=== PATIENT | male | born 1950 | race Caucasian/White ===

== ENCOUNTER 2019-08-24 21:10 | Emergency (ER) | payer BC ==
[~2019-08-24] VITALS: Ht 170.1 cm; Wt 68.0 kg
[2019-08-24 21:45] LABS: BASO % 0.3 % (0.0-1.0); EOS % 0.6 % (1.0-4.0); HEMATOCRIT 33.1 % (42.0-52.0); LYMPH # 1.9 10*3/uL (1.3-4.4); LYMPH % 30.4 % (27.0-41.0); MEAN CELL VOLUME 106.8 fl (80.0-94.0); MEAN CORPUSCULAR HGB 35.8 pg (27.0-31.0); MEAN CORPUSCULAR HGB CONC 33.5 g/dl (33.0-37.0); MEAN PLATELET VOLUME 9.5 fl (9.6-12.3); MONO % 16.3 % (3.0-9.0); NEUT # 3.2 10*3/uL (2.3-7.9); NEUT % 51.8 % (47.0-73.0); PLATELET COUNT AUTOMATED 160 10*3/uL (130-400); RED CELL DISTRI WIDTH 12.5 % (0-14.5); WHITE BLOOD COUNT 6.2 10*3/uL (4.8-10.8)
[2019-08-24 21:57] LABS: ACT PARTIAL THROMBO TIME 27.5 SECONDS (20.0-32.1)
[2019-08-24 22:03] LABS: ALBUMIN 2.8 gm/dl (3.1-4.5); ALKALINE PHOSPHATASE 62 U/L (45-117); BUN 13 mg/dl (7-24); CHLORIDE 105 mmol/L (98-107); CREATININE 1.19 mg/dL (0.70-1.30); LIPASE 172 U/L (73-393); POTASSIUM 2.9 mmol/L (3.5-5.1); SGOT/AST 79 IU/L (3-35); SODIUM 140 mmol/L (136-145); TOTAL PROTEIN 7.2 gm/dL (6.4-8.2)
[2019-08-24 22:09] LABS: ACETAMINOPHEN (TYLENOL) < 5.0 ug/ml (10-30); SGPT/ALT 30 U/L (12-78); TROPONIN I < 0.015 ng/ml (<0.045)
[2019-08-25 03:08] LABS: BILIRUBIN NEGATIVE (NEGATIVE); BLOOD NEGATIVE (NEGATIVE); CLARITY CLEAR (CLEAR); COLOR YELLOW (YELLOW); GLUCOSE NEGATIVE (NEGATIVE); KETONE NEGATIVE (NEGATIVE); SPECIFIC GRAVITY 1.015 (1.005-1.030)
[2019-08-25 03:09] LABS: LEUKO ESTERASE NEGATIVE (NEGATIVE); NITRITE NEGATIVE (NEGATIVE); PH 6.5 (5.0-9.0); UROBILINOGEN 0.2 E.U./dl (0.2-1.0)
[2019-08-25 03:13] LABS: URINE AMPHETAMINES < 1000 (1000ng/ml); URINE BARBITURATES < 200 (200ng/ml); URINE BENZODIAZEPINES > 200 (200ng/ml); URINE CANNABINOIDS (THC) > 50 (50ng/ml); URINE COCAINE < 300 (300ng/ml); URINE METHADONE < 300 (300ng/ml); URINE OPIATES < 300 (300ng/ml)
[2019-08-25 03:24] LABS: URINE PHENCYCLIDINE < 25 (25ng/ml)
[2019-08-25 03:28] LABS: RBC 0-2 rbc/hpf (0-2); WBC 0-2 wbc/hpf (0-5)
[2019-08-25] MEDS ORDERED: LEVOFLOXACIN500 MG PO (10:21)
== END 2019-08-25 10:36 | disposition home or self-care (01) ==
LOC: ED 21:10
PROVIDERS: Emergency Medicine Emergency Medical Services
DX: J69.0 Pneumonitis due to inhalation of food and vomit (principal)

== ENCOUNTER 2022-03-22 12:23 | Inpatient (IN) | payer MEDICARE ==
[~2022-03-22] VITALS: Ht 170.1 cm; Wt 69.0 kg
[~2022-03-22 12:23] MED LIST: ATARAX,VISTARIL50 MG PO; CLINDAMYCIN HC300 MG PO; DICYCLOMINE HYD20 MG PO; LEVOFLOXACIN500 MG PO; MULTI-VITAMIN1 EACH PO; NATURE'S BLEND F1 MG PO; THERA TABLET400 MCG PO; VITAMIN B-1100 M1 PO
[2022-03-22 12:46] VITALS: BP 111/79
[2022-03-22 13:03] LABS: HEMATOCRIT 35.6 % (42.0-52.0); MEAN CELL VOLUME 108.2 fl (80.0-94.0); MEAN CORPUSCULAR HGB 36.2 pg (27.0-31.0); MEAN CORPUSCULAR HGB CONC 33.4 g/dl (33.0-37.0); MEAN PLATELET VOLUME 9.3 fl (9.6-12.3); PLATELET COUNT AUTOMATED 90 10*3/uL (130-400); RED BLOOD COUNT 3.29 10*6/uL (4.50-5.90); RED CELL DISTRI WIDTH 13.8 % (0-14.5)
[2022-03-22 13:07] LABS: MANUAL DIFF REFLEX YES
[2022-03-22 13:23] LABS: BASOPHILS 1 % (0-1); PLATELET SUFFICIENCY LOW (NORMAL); POLYCHROMASIA SLIGHT; TOTAL CELLS COUNTED 100 #CELLS
[2022-03-22 13:28] LABS: ALKALINE PHOSPHATASE 109 U/L (46-116); BUN 6 mg/dl (9-23); CHLORIDE 102 mmol/L (98-107); POTASSIUM 3.7 mmol/L (3.4-5.1); SGPT/ALT 21 U/L (10-49)
[2022-03-22 13:31] LABS: ETHYL ALCOHOL 302.9 mg/dl (<3)
[2022-03-22 15:05] LABS: URINE AMPHETAMINES Negative (1000ng/ml); URINE BARBITURATES Negative (200ng/ml); URINE BENZODIAZEPINES Positive (200ng/ml); URINE CANNABINOIDS (THC) Negative (50ng/ml); URINE COCAINE Negative (300ng/ml); URINE METHADONE Negative (300ng/ml); URINE OPIATES Negative (300ng/ml); URINE PHENCYCLIDINE Negative (25ng/ml)
[2022-03-22 15:07] LABS: BILIRUBIN Negative (Negative); BLOOD Trace-Lysed (Negative); CLARITY Cloudy (Clear); COLOR Dark Yellow (Yellow); GLUCOSE Negative (Negative); KETONE Trace (Negative); LEUKO ESTERASE 2+ (Negative); NITRITE Positive (Negative); PH 5.5 (4.5-8.0); SPECIFIC GRAVITY 1.015 (1.001-1.030)
[2022-03-22 15:35] LABS: BACTERIA 1+; WBC 21-30 wbc/hpf (0-5)
[2022-03-22 16:00] VITALS: BP 144/88
[2022-03-22 20:00] VITALS: BP 125/85
[2022-03-23] VITALS: BP 132/89
[2022-03-23 08:00] VITALS: BP 138/84
[2022-03-23 12:00] VITALS: BP 128/81
[2022-03-23 16:00] VITALS: BP 140/84
[2022-03-23 20:00] VITALS: BP 141/92
[2022-03-24] VITALS: BP 151/88
[2022-03-24 04:00] VITALS: BP 125/46
[2022-03-24 08:00] VITALS: BP 149/89
[2022-03-24 12:00] VITALS: BP 110/81
[2022-03-24 15:06] LABS: HEMATOCRIT 32.6 % (42.0-52.0); MEAN CELL VOLUME 108.3 fl (80.0-94.0); MEAN CORPUSCULAR HGB 35.5 pg (27.0-31.0); MEAN CORPUSCULAR HGB CONC 32.8 g/dl (33.0-37.0); MEAN PLATELET VOLUME 10.9 fl (9.6-12.3); PLATELET COUNT AUTOMATED 64 10*3/uL (130-400); RED BLOOD COUNT 3.01 10*6/uL (4.50-5.90); RED CELL DISTRI WIDTH 14.1 % (0-14.5); WHITE BLOOD COUNT 6.8 10*3/uL (4.8-10.8)
[2022-03-24 15:12] LABS: MANUAL DIFF REFLEX YES
[2022-03-24 15:17] LABS: ALKALINE PHOSPHATASE 108 U/L (46-116); BUN 8 mg/dl (9-23); CHLORIDE 100 mmol/L (98-107); POTASSIUM 3.5 mmol/L (3.4-5.1); SGPT/ALT 20 U/L (10-49); TOTAL PROTEIN 7.1 gm/dL (6.0-8.0)
[2022-03-24 15:41] LABS: OVALOCYTES FEW; PLATELET SUFFICIENCY LOW (NORMAL); TOTAL CELLS COUNTED 100 #CELLS
[2022-03-24 15:42] LABS: TARGET CELLS FEW
[2022-03-24 16:00] VITALS: BP 110/72
[2022-03-24 20:00] VITALS: BP 125/80
[2022-03-25 01:17] VITALS: BP 96/65
[2022-03-25 08:00] VITALS: BP 125/86
[2022-03-25 12:00] VITALS: BP 116/84
[2022-03-25 16:00] VITALS: BP 117/81
[2022-03-25 20:00] VITALS: BP 115/75
[2022-03-26] VITALS: BP 114/77
[2022-03-26 08:00] VITALS: BP 148/89
[2022-03-26 12:00] VITALS: BP 123/72
[2022-03-26 16:00] VITALS: BP 120/82
[2022-03-26 20:00] VITALS: BP 132/92
[2022-03-27] VITALS: BP 136/98
[2022-03-27 08:00] VITALS: BP 154/98
[2022-03-27 12:00] VITALS: BP 137/87
[2022-03-27 16:00] VITALS: BP 125/85
[2022-03-27 20:00] VITALS: BP 115/85
[2022-03-28] VITALS: BP 127/92
[2022-03-28 06:23] LABS: HEMATOCRIT 29.8 % (42.0-52.0); MEAN CORPUSCULAR HGB 35.8 pg (27.0-31.0); MEAN CORPUSCULAR HGB CONC 32.6 g/dl (33.0-37.0); MEAN PLATELET VOLUME 10.3 fl (9.6-12.3); PLATELET COUNT AUTOMATED 105 10*3/uL (130-400); RED BLOOD COUNT 2.71 10*6/uL (4.50-5.90); RED CELL DISTRI WIDTH 14.1 % (0-14.5); WHITE BLOOD COUNT 7.3 10*3/uL (4.8-10.8)
[2022-03-28 06:32] LABS: MANUAL DIFF REFLEX YES
[2022-03-28 06:56] LABS: BURR CELLS FEW; POLYCHROMASIA SLIGHT; TARGET CELLS FEW; TOTAL CELLS COUNTED 100 #CELLS
[2022-03-28 06:57] LABS: PLATELET SUFFICIENCY LOW (NORMAL); SCHISTOCYTES FEW; TOXIC GRANULATION SLIGHT
[2022-03-28 08:00] VITALS: BP 125/80
[2022-03-28 12:00] VITALS: BP 154/94
[2022-03-28 16:00] VITALS: BP 150/79
[2022-03-28 20:00] VITALS: BP 144/97
[2022-03-29] VITALS: BP 130/84
[2022-03-29 08:00] VITALS: BP 158/96
[2022-03-29] MEDS ORDERED: ATARAX,VISTARIL50 MG PO (08:37)
== END 2022-03-29 12:13 | DRG 897 ==
LOC: ED 12:23 → 4E 15:14 → EDHOLD 15:14 → 4E 15:38
PROVIDERS: Emergency Medicine; Internal Medicine; ADMIT Emergency Medicine; ATTEND Emergency Medicine
DX: F10.230 Alcohol dependence with withdrawal, uncomplicated (principal); N30.00 Acute cystitis without hematuria; M19.90 Unspecified osteoarthritis, unspecified site; I95.1 Orthostatic hypotension; G31.2 Degeneration of nervous system due to alcohol; J44.9 Chronic obstructive pulmonary disease, unspecified; D53.9 Nutritional anemia, unspecified; R74.01 Elevation of levels of liver transaminase levels; R73.9 Hyperglycemia, unspecified; F17.210 Nicotine dependence, cigarettes, uncomplicated; S51.012A Laceration without foreign body of left elbow, initial encounter; D69.6 Thrombocytopenia, unspecified; Z88.1 Allergy status to other antibiotic agents

== ENCOUNTER 2022-06-22 10:24 | Inpatient (IN) | payer MEDICARE ==
[~2022-06-22] VITALS: Ht 170.1 cm; Wt 69.6 kg
[2022-06-22 10:48] VITALS: BP 133/98
[2022-06-22 11:53] LABS: BASO % 0.5 % (0.0-1.0); EOS # 0.1 10*3/uL (0.0-0.4); EOS % 2.5 % (1.0-4.0); HEMATOCRIT 34.1 % (42.0-52.0); LYMPH # 1.3 10*3/uL (1.3-4.4); LYMPH % 32.8 % (27.0-41.0); MEAN CELL VOLUME 96.6 fl (80.0-94.0); MEAN CORPUSCULAR HGB 33.1 pg (27.0-31.0); MEAN CORPUSCULAR HGB CONC 34.3 g/dl (33.0-37.0); MEAN PLATELET VOLUME 8.8 fl (9.6-12.3); MONO # 0.4 10*3/uL (0.1-1.0); MONO % 9.3 % (3.0-9.0); NEUT # 2.2 10*3/uL (2.3-7.9); NEUT % 54.6 % (47.0-73.0); PLATELET COUNT AUTOMATED 72 10*3/uL (130-400); RED BLOOD COUNT 3.53 10*6/uL (4.50-5.90); RED CELL DISTRI WIDTH 14.7 % (0-14.5)
[2022-06-22 12:00] VITALS: BP 148/86
[2022-06-22 12:30] LABS: ALKALINE PHOSPHATASE 114 U/L (46-116); BUN 8 mg/dl (9-23); CHLORIDE 103 mmol/L (98-107); POTASSIUM 4.1 mmol/L (3.4-5.1); SGPT/ALT 20 U/L (10-49); TOTAL PROTEIN 7.7 gm/dL (6.0-8.0)
[2022-06-22 14:00] LABS: URINE AMPHETAMINES Negative (1000ng/ml); URINE BARBITURATES Negative (200ng/ml); URINE BENZODIAZEPINES Negative (200ng/ml); URINE CANNABINOIDS (THC) Negative (50ng/ml); URINE COCAINE Negative (300ng/ml); URINE METHADONE Negative (300ng/ml); URINE OPIATES Negative (300ng/ml); URINE PHENCYCLIDINE Negative (25ng/ml)
[2022-06-22 14:14] LABS: BILIRUBIN Negative (Negative); BLOOD Negative (Negative); CLARITY Clear (Clear); COLOR Yellow (Yellow); GLUCOSE Negative (Negative); KETONE Negative (Negative); LEUKO ESTERASE Negative (Negative); NITRITE Negative (Negative)
[2022-06-22 15:34] LABS: RBC 0-2 rbc/hpf (0-2); WBC 0-2 wbc/hpf (0-5)
[2022-06-22 17:30] VITALS: BP 148/86
[2022-06-22 17:57] VITALS: BP 98/64
[2022-06-22 19:53] VITALS: BP 139/56
[2022-06-22 23:04] VITALS: BP 151/80
[2022-06-23 06:25] LABS: ACT PARTIAL THROMBO TIME 31.7 SECONDS (20.0-32.1); INTERNATIONAL NORM RATIO 1.1 (2.0-3.5)
[2022-06-23 06:39] LABS: BASO % 0.3 % (0.0-1.0); EOS # 0.1 10*3/uL (0.0-0.4); EOS % 3.3 % (1.0-4.0); HEMATOCRIT 31.8 % (42.0-52.0); LYMPH # 1.3 10*3/uL (1.3-4.4); LYMPH % 33.3 % (27.0-41.0); MEAN CELL VOLUME 96.1 fl (80.0-94.0); MEAN CORPUSCULAR HGB 31.4 pg (27.0-31.0); MEAN CORPUSCULAR HGB CONC 32.7 g/dl (33.0-37.0); MEAN PLATELET VOLUME 9.9 fl (9.6-12.3); MONO # 0.6 10*3/uL (0.1-1.0); MONO % 14.5 % (3.0-9.0); NEUT # 1.9 10*3/uL (2.3-7.9); NEUT % 48.3 % (47.0-73.0); PLATELET COUNT AUTOMATED 61 10*3/uL (130-400); RED BLOOD COUNT 3.31 10*6/uL (4.50-5.90); RED CELL DISTRI WIDTH 14.8 % (0-14.5)
[2022-06-23 06:45] LABS: ALKALINE PHOSPHATASE 102 U/L (46-116); BUN 10 mg/dl (9-23); CHLORIDE 106 mmol/L (98-107); POTASSIUM 4.4 mmol/L (3.4-5.1); SGPT/ALT 17 U/L (10-49)
[2022-06-23 07:52] VITALS: BP 142/79
[2022-06-23 12:36] VITALS: BP 140/85
[2022-06-23 14:52] VITALS: BP 132/72
[2022-06-23 20:00] VITALS: BP 135/82
[2022-06-24] VITALS: BP 150/84
[2022-06-24 08:00] VITALS: BP 157/95
[2022-06-24 12:00] VITALS: BP 145/90
[2022-06-24 16:00] VITALS: BP 153/80
[2022-06-24 20:00] VITALS: BP 156/97
[2022-06-25] VITALS: BP 154/94
[2022-06-25 06:21] LABS: BUN 13 mg/dl (9-23); CHLORIDE 103 mmol/L (98-107); POTASSIUM 3.9 mmol/L (3.4-5.1)
[2022-06-25 08:00] VITALS: BP 129/66
[2022-06-25 12:00] VITALS: BP 123/81
[2022-06-25 16:00] VITALS: BP 129/95
[2022-06-25 20:00] VITALS: BP 139/87
[2022-06-26] VITALS: BP 101/88
[2022-06-26 06:13] LABS: BASO % 0.4 % (0.0-1.0); EOS # 0.3 10*3/uL (0.0-0.4); HEMATOCRIT 30.8 % (42.0-52.0); LYMPH # 1.4 10*3/uL (1.3-4.4); LYMPH % 28.1 % (27.0-41.0); MEAN CELL VOLUME 96.9 fl (80.0-94.0); MEAN CORPUSCULAR HGB 32.7 pg (27.0-31.0); MEAN CORPUSCULAR HGB CONC 33.8 g/dl (33.0-37.0); MEAN PLATELET VOLUME 9.6 fl (9.6-12.3); MONO # 0.7 10*3/uL (0.1-1.0); MONO % 13.7 % (3.0-9.0); NEUT # 2.5 10*3/uL (2.3-7.9); NEUT % 51.6 % (47.0-73.0); PLATELET COUNT AUTOMATED 71 10*3/uL (130-400); RED BLOOD COUNT 3.18 10*6/uL (4.50-5.90); RED CELL DISTRI WIDTH 14.7 % (0-14.5); WHITE BLOOD COUNT 4.8 10*3/uL (4.8-10.8)
[2022-06-26 08:00] VITALS: BP 106/76
[2022-06-26 08:18] LABS: BUN 17 mg/dl (9-23); CHLORIDE 104 mmol/L (98-107); POTASSIUM 4.2 mmol/L (3.4-5.1)
[2022-06-26] MEDS ORDERED: VITAMIN D350 MC2 PO (10:30)
[2022-06-26 12:00] VITALS: BP 110/72
[2022-06-26 16:00] VITALS: BP 108/74
[2022-06-26 20:00] VITALS: BP 125/83
[2022-06-27] VITALS: BP 152/88
[2022-06-27 08:00] VITALS: BP 152/89
[2022-06-27 12:00] VITALS: BP 146/59
[2022-06-27 16:00] VITALS: BP 145/87
[2022-06-27 20:00] VITALS: BP 144/87
[2022-06-28] VITALS: BP 150/88; BP 154/95
[2022-06-28 08:00] VITALS: BP 149/81
[2022-06-28 12:00] VITALS: BP 140/90
== END 2022-06-28 13:23 | disposition home or self-care (01) | DRG 897 ==
LOC: ED 10:24 → EDHOLD 16:45 → 4E 16:45
PROVIDERS: Internal Medicine; Physician Assistant; ADMIT Internal Medicine; ATTEND Internal Medicine
DX: F10.129 Alcohol abuse with intoxication, unspecified (principal); D61.818 Other pancytopenia; F10.139 Alcohol abuse with withdrawal, unspecified; J44.9 Chronic obstructive pulmonary disease, unspecified; F17.219 Nicotine dependence, cigarettes, with unspecified nicotine-induced disorders; E55.9 Vitamin D deficiency, unspecified; D53.9 Nutritional anemia, unspecified; R73.9 Hyperglycemia, unspecified; Z88.1 Allergy status to other antibiotic agents; Z88.8 Allergy status to other drugs, medicaments and biological substances

== ENCOUNTER 2022-07-29 10:04 | Inpatient (IN) | payer MEDICARE ==
[~2022-07-29] VITALS: Ht 170.1 cm; Wt 71.9 kg
[~2022-07-29 10:04] MED LIST changes: +VITAMIN D350 MC2 PO
[2022-07-29 10:13] VITALS: BP 152/93
[2022-07-29 10:42] LABS: BASO % 0.3 % (0.0-1.0); EOS # 0.3 10*3/uL (0.0-0.4); EOS % 8.5 % (1.0-4.0); HEMATOCRIT 36.8 % (42.0-52.0); LYMPH # 1.2 10*3/uL (1.3-4.4); LYMPH % 35.6 % (27.0-41.0); MEAN CELL VOLUME 95.1 fl (80.0-94.0); MEAN CORPUSCULAR HGB 32.3 pg (27.0-31.0); MEAN PLATELET VOLUME 9.2 fl (9.6-12.3); MONO # 0.3 10*3/uL (0.1-1.0); MONO % 7.9 % (3.0-9.0); NEUT # 1.6 10*3/uL (2.3-7.9); NEUT % 47.4 % (47.0-73.0); PLATELET COUNT AUTOMATED 79 10*3/uL (130-400); RED BLOOD COUNT 3.87 10*6/uL (4.50-5.90); RED CELL DISTRI WIDTH 14.7 % (0-14.5); WHITE BLOOD COUNT 3.3 10*3/uL (4.8-10.8)
[2022-07-29 11:03] LABS: ACT PARTIAL THROMBO TIME 30.8 SECONDS (20.0-32.1)
[2022-07-29 11:05] LABS: ALKALINE PHOSPHATASE 108 U/L (46-116); BUN 7 mg/dl (9-23); CHLORIDE 103 mmol/L (98-107); ETHYL ALCOHOL 224.8 mg/dl (<3); POTASSIUM 3.6 mmol/L (3.4-5.1); SGPT/ALT 8 U/L (10-49); TOTAL PROTEIN 7.9 gm/dL (6.0-8.0)
[2022-07-29 13:22] VITALS: BP 164/88
[2022-07-29 15:29] LABS: BILIRUBIN Negative (Negative); BLOOD Negative (Negative); CLARITY Clear (Clear); COLOR Yellow (Yellow); GLUCOSE Negative (Negative); KETONE Negative (Negative); LEUKO ESTERASE Negative (Negative); NITRITE Negative (Negative)
[2022-07-29 15:37] LABS: BACTERIA TRACE; EPITHELIAL CELLS 0-2; RBC 0-2 rbc/hpf (0-2); URINE AMPHETAMINES Negative (1000ng/ml); URINE BARBITURATES Negative (200ng/ml); URINE BENZODIAZEPINES Positive (200ng/ml); URINE CANNABINOIDS (THC) Negative (50ng/ml); URINE COCAINE Negative (300ng/ml); URINE METHADONE Negative (300ng/ml); URINE OPIATES Negative (300ng/ml); URINE PHENCYCLIDINE Negative (25ng/ml); WBC 0-2 wbc/hpf (0-5)
[2022-07-29 18:14] VITALS: BP 173/96
[2022-07-29 20:26] VITALS: BP 161/95
[2022-07-30] VITALS: BP 149/87
[2022-07-30 06:46] LABS: BUN 7 mg/dl (9-23); CHLORIDE 102 mmol/L (98-107); POTASSIUM 3.6 mmol/L (3.4-5.1)
[2022-07-30 08:00] VITALS: BP 150/92
[2022-07-30 12:00] VITALS: BP 150/82
[2022-07-30 16:00] VITALS: BP 148/64
[2022-07-30 20:00] VITALS: BP 109/77
[2022-07-31] VITALS: BP 119/72
[2022-07-31 08:00] VITALS: BP 152/98
[2022-07-31 12:00] VITALS: BP 131/88
[2022-07-31 16:00] VITALS: BP 149/75
[2022-07-31 20:00] VITALS: BP 130/83
[2022-08-01] VITALS: BP 139/81
[2022-08-01 08:00] VITALS: BP 100/69
[2022-08-01 12:00] VITALS: BP 100/76
[2022-08-01 16:00] VITALS: BP 146/87
[2022-08-01 20:00] VITALS: BP 134/87
[2022-08-02] VITALS: BP 126/90
[2022-08-02 06:21] LABS: BASO % 0.6 % (0.0-1.0); EOS # 0.5 10*3/uL (0.0-0.4); EOS % 8.8 % (1.0-4.0); HEMATOCRIT 32.8 % (42.0-52.0); LYMPH # 1.5 10*3/uL (1.3-4.4); LYMPH % 28.1 % (27.0-41.0); MEAN CELL VOLUME 97.6 fl (80.0-94.0); MEAN CORPUSCULAR HGB 32.4 pg (27.0-31.0); MEAN CORPUSCULAR HGB CONC 33.2 g/dl (33.0-37.0); MEAN PLATELET VOLUME 10.3 fl (9.6-12.3); MONO # 0.6 10*3/uL (0.1-1.0); MONO % 11.7 % (3.0-9.0); NEUT # 2.7 10*3/uL (2.3-7.9); NEUT % 50.2 % (47.0-73.0); PLATELET COUNT AUTOMATED 100 10*3/uL (130-400); RED BLOOD COUNT 3.36 10*6/uL (4.50-5.90); RED CELL DISTRI WIDTH 15.4 % (0-14.5); WHITE BLOOD COUNT 5.5 10*3/uL (4.8-10.8)
[2022-08-02 08:00] VITALS: BP 154/89
[2022-08-02 12:00] VITALS: BP 122/85
== END 2022-08-02 15:00 | disposition home or self-care (01) | DRG 897 ==
LOC: ED 10:04 → EDHOLD 10:47 → 4E 10:47 → EDHOLD 10:48 → 4E 19:56
PROVIDERS: Emergency Medicine; Family Medicine; Registered Nurse; ADMIT Internal Medicine; ATTEND Internal Medicine
DX: F10.230 Alcohol dependence with withdrawal, uncomplicated (principal); E83.42 Hypomagnesemia; J44.9 Chronic obstructive pulmonary disease, unspecified; F17.210 Nicotine dependence, cigarettes, uncomplicated; Z88.1 Allergy status to other antibiotic agents; Z88.8 Allergy status to other drugs, medicaments and biological substances

== ENCOUNTER 2023-03-16 09:50 | Inpatient (IN) | payer OTHER ==
[~2023-03-16] VITALS: Ht 170 cm; Wt 70.0 kg
[2023-03-16 09:55] VITALS: BP 153/103
[2023-03-16 10:47] LABS: BASO % 0.3 % (0.0-1.0); EOS # 0.2 10*3/uL (0.0-0.4); HEMATOCRIT 41.6 % (42.0-52.0); LYMPH # 1.1 10*3/uL (1.3-4.4); LYMPH % 29.2 % (27.0-41.0); MEAN CORPUSCULAR HGB 33.9 pg (27.0-31.0); MEAN CORPUSCULAR HGB CONC 32.9 g/dl (33.0-37.0); MEAN PLATELET VOLUME 10.6 fl (9.6-12.3); MONO # 0.5 10*3/uL (0.1-1.0); MONO % 11.8 % (3.0-9.0); NEUT % 53.4 % (47.0-73.0); PLATELET COUNT AUTOMATED 105 10*3/uL (130-400); RED BLOOD COUNT 4.04 10*6/uL (4.50-5.90); RED CELL DISTRI WIDTH 14.4 % (0-14.5); WHITE BLOOD COUNT 3.8 10*3/uL (4.8-10.8)
[2023-03-16 11:21] VITALS: BP 160/86
[2023-03-16 11:25] LABS: BILIRUBIN Negative (Negative); BLOOD Negative (Negative); CLARITY Clear (Clear); COLOR Yellow (Yellow); GLUCOSE Negative (Negative); KETONE Negative (Negative); LEUKO ESTERASE Negative (Negative); NITRITE Negative (Negative); PH 5.5 (4.5-8.0); SPECIFIC GRAVITY <= 1.005 (1.001-1.030)
[2023-03-16 11:32] LABS: URINE AMPHETAMINES Negative (1000ng/ml); URINE BARBITURATES Negative (200ng/ml); URINE BENZODIAZEPINES Negative (200ng/ml); URINE CANNABINOIDS (THC) Negative (50ng/ml); URINE COCAINE Negative (300ng/ml); URINE METHADONE Negative (300ng/ml); URINE OPIATES Negative (300ng/ml); URINE PHENCYCLIDINE Negative (25ng/ml)
[2023-03-16 11:39] LABS: MUCOUS TRACE; YEAST TRACE
[2023-03-16 12:00] LABS: ALKALINE PHOSPHATASE 92 U/L (46-116); BUN 6 mg/dl (9-23); CHLORIDE 103 mmol/L (98-107); ETHYL ALCOHOL 247.3 mg/dl (<3); POTASSIUM 3.8 mmol/L (3.4-5.1); SGPT/ALT 20 U/L (5-49); TOTAL PROTEIN 7.9 gm/dL (6.0-8.0)
[2023-03-16 20:00] VITALS: BP 146/78
[2023-03-17] VITALS: BP 137/84
[2023-03-17 06:11] LABS: ALKALINE PHOSPHATASE 82 U/L (46-116); BUN 11 mg/dl (9-23); CHLORIDE 107 mmol/L (98-107); SGPT/ALT 15 U/L (5-49); TOTAL PROTEIN 6.8 gm/dL (6.0-8.0)
[2023-03-17 06:14] LABS: BASO % 0.2 % (0.0-1.0); EOS # 0.1 10*3/uL (0.0-0.4); HEMATOCRIT 35.9 % (42.0-52.0); LYMPH # 1.4 10*3/uL (1.3-4.4); LYMPH % 35.4 % (27.0-41.0); MEAN CELL VOLUME 103.8 fl (80.0-94.0); MEAN CORPUSCULAR HGB 33.8 pg (27.0-31.0); MEAN CORPUSCULAR HGB CONC 32.6 g/dl (33.0-37.0); MEAN PLATELET VOLUME 9.6 fl (9.6-12.3); MONO # 0.5 10*3/uL (0.1-1.0); MONO % 13.4 % (3.0-9.0); NEUT # 1.9 10*3/uL (2.3-7.9); PLATELET COUNT AUTOMATED 74 10*3/uL (130-400); RED BLOOD COUNT 3.46 10*6/uL (4.50-5.90); RED CELL DISTRI WIDTH 14.6 % (0-14.5)
[2023-03-17 08:00] VITALS: BP 140/90
[2023-03-17 12:00] VITALS: BP 166/90
[2023-03-17 16:00] VITALS: BP 131/91
[2023-03-17 20:00] VITALS: BP 140/90
[2023-03-18] VITALS: BP 157/88
[2023-03-18 06:15] LABS: BASO % 0.4 % (0.0-1.0); EOS # 0.2 10*3/uL (0.0-0.4); HEMATOCRIT 35.5 % (42.0-52.0); LYMPH # 1.6 10*3/uL (1.3-4.4); LYMPH % 34.2 % (27.0-41.0); MEAN CELL VOLUME 101.7 fl (80.0-94.0); MEAN CORPUSCULAR HGB 34.4 pg (27.0-31.0); MEAN CORPUSCULAR HGB CONC 33.8 g/dl (33.0-37.0); MEAN PLATELET VOLUME 9.6 fl (9.6-12.3); MONO # 0.6 10*3/uL (0.1-1.0); MONO % 12.9 % (3.0-9.0); NEUT # 2.3 10*3/uL (2.3-7.9); NEUT % 48.3 % (47.0-73.0); PLATELET COUNT AUTOMATED 64 10*3/uL (130-400); RED BLOOD COUNT 3.49 10*6/uL (4.50-5.90); RED CELL DISTRI WIDTH 14.4 % (0-14.5); WHITE BLOOD COUNT 4.7 10*3/uL (4.8-10.8)
[2023-03-18 08:00] VITALS: BP 144/91
[2023-03-18 12:00] VITALS: BP 143/94
[2023-03-18 16:00] VITALS: BP 122/92
[2023-03-18 20:36] VITALS: BP 131/99
[2023-03-19] VITALS: BP 128/81
[2023-03-19 08:00] VITALS: BP 127/61
[2023-03-19 12:00] VITALS: BP 120/70
[2023-03-19] MEDS ORDERED: METOPROLOL SUCC25 M2 PO (12:05)
== END 2023-03-19 15:54 | disposition home or self-care (01) | DRG 896 ==
LOC: ED 09:50 → EDHOLD 12:40 → 4E 12:40 → EDHOLD 12:42 → 4E 13:49
PROVIDERS: Family Medicine; Student in an Organized Health Care Education/Training Program; ADMIT Internal Medicine; ATTEND Internal Medicine
DX: F10.239 Alcohol dependence with withdrawal, unspecified (principal); I62.03 Nontraumatic chronic subdural hemorrhage; D61.818 Other pancytopenia; R65.10 Systemic inflammatory response syndrome (SIRS) of non-infectious origin without acute organ dysfunction; F17.200 Nicotine dependence, unspecified, uncomplicated; J44.9 Chronic obstructive pulmonary disease, unspecified; F10.229 Alcohol dependence with intoxication, unspecified; I95.1 Orthostatic hypotension; K46.9 Unspecified abdominal hernia without obstruction or gangrene; E55.9 Vitamin D deficiency, unspecified; L43.9 Lichen planus, unspecified; Z20.822 Contact with and (suspected) exposure to COVID-19; Z88.1 Allergy status to other antibiotic agents; Z88.8 Allergy status to other drugs, medicaments and biological substances; Z71.6 Tobacco abuse counseling